=== PATIENT | male | born 1935 | race Asian ===

== ENCOUNTER 2023-11-08 07:37 | Day surgery (SDC) | payer OTHER, MEDICAID ==
[~2023-11-08] VITALS: Ht 170.2 cm; Wt 56.7 kg
[2023-11-08] MEDS ORDERED: fentaNYL CITRATE/PF 100 MCG/2 ML AMP ONE (08:52)
[2023-11-08] MEDS ORDERED: MIDAZOLAM HCL 5 MG/5 ML VIAL ONE (08:53)
[2023-11-08 13:38] VITALS: BP_SYST 144; PULSE 51; RESP 16; TEMP 98; O2SAT 99
== END 2023-11-08 10:17 | disposition home or self-care (01) ==
LOC: SDS 07:37 → SMU 07:48 → SDS 10:17
PROVIDERS: ATTEND Internal Medicine
DX: K92.1 Melena (principal); K29.50 Unspecified chronic gastritis without bleeding; D17.79 Benign lipomatous neoplasm of other sites; K74.60 Unspecified cirrhosis of liver; K26.9 Duodenal ulcer, unspecified as acute or chronic, without hemorrhage or perforation; E03.9 Hypothyroidism, unspecified; Z98.890 Other specified postprocedural states; Z79.890 Hormone replacement therapy; Z79.899 Other long term (current) drug therapy; Z85.038 Personal history of other malignant neoplasm of large intestine
CPT/HCPCS: 45380; 43239; 87081; 36415; 88305; 88312; 88313; 99153; 99152; G0378; J2250; J3010